=== PATIENT | female | born 2000 | race Caucasian/White ===

== ENCOUNTER 2025-04-01 14:58 | Emergency (ER) | payer OTHER, SELFPAY ==
--- NOTE | ~2025-04-01 | XR_ITS ---
EXAMINATION: XR chest 2V DATE: 04/01/2025 15:32 INDICATION: 2 days of shortness of breath, chest pain, cough and fevers TECHNIQUE: PA and lateral views of the chest were obtained. COMPARISON: None FINDINGS: The lungs are clear with no focal airspace opacities, pulmonary edema, pleural effusion or pneumothorax. Heart size is normal. Venous sternotomy with small median sternotomy wires suggesting surgery during childhood. Aortic valve repair. Correlate with surgical history. IMPRESSION: 1. No acute cardiopulmonary disease. Reviewed, dictated and finalized at location A. NESS SOLUTION ANALYST
--- NOTE | 2025-04-01 15:00 | ED_ITS ---
HPI - General Adult General Chief complaint: Upper Respiratory Infection Stated complaint: FEVER/BODY ACHES/CHILLS/SORE THROAT/CONGESTION Source: patient, RN notes reviewed and old records reviewed Mode of arrival: ambulatory Limitations: no limitations History of Present Illness HPI narrative: 24-year-old female presents to the [facility] with complaints of fever, 100, body aches, chills, sore throat, congestion and a cough. Symptoms started 2 days ago on Monday. Patient Concern for pneumonia. Patient did take ibuprofen at 2:00 p.m.. Sudafed took 1 dose last night. No other treatment prior to arrival Related Data Home Medications ?Medication ?Instructions ?Recorded ?Confirmed ?Last Taken ?Type aspirin 81 mg chewable tablet 81 mg PO DAILY 04/01/25 04/01/25 Unknown History cetirizine .ROUTE 04/01/25 Unknown His tory lisdexamfetamine 20 mg capsule mg 04/01/25 Unknown Hi story Allergies Allergy/AdvReac Type Severity Reaction Status Date / Time No Known Allergies Allergy Verified 04/01/25 15:10 Review of Systems Review of Systems: All systems reviewed & are unremarkable except as noted in HPI and below Constitutional: Constitutional: Reports as per HPI, Reports body ache(s), Reports chills and Reports fever(s) ENT: Reports as per HPI and Reports sore throat Cardiovascular: Cardiovascular: Reports no additional cardiovascular complaints, Denies chest pain and Denies dyspnea Respiratory: Respiratory: Reports as per HPI, Denies chest congestion, Reports cough and Denies dyspnea Musculoskeletal: Musculoskeletal: Reports no additional musculoskeletal compl aints Integumentary/Breasts: Skin/Breast: Reports system reviewed and no additional complaints, except as docu PMFSH Surgical History Surgical History Heart valve replaced Comments At the time of my signature, I reviewed and agree with the nursing past medical, surgical, social, and family history. There is no relevant family history pertinent to the patient complaint. Exam Const: General: cooperative, healthy appearing, comfortable, no acute distress, well developed, alert and well nourished Nutritional Appearance: well nourished Orientation/consciousness: patient oriented x3 Limitations: no limitations HENMT: Head: normal to inspection Ears: hearing grossly normal bilaterally, external ears normal, TM's normal bilaterally, EAC's normal, mastoids normal and no periauricular adenopathy Face and sinus: normal facial exam and face symmetric Mouth: Yes Normal oral and palatal mucosa present, Yes lip normal, Yes tongue normal and Yes moist mucous membranes Throat: posterior oropharynx normal, uvula midline and no uvular edema Eyes: General: appearance normal, both eyes and all related structures Alignment and Position: alignment normal Neck: Neck: normal visual inspection, full ROM, no lymphadenopathy and no meningeal signs Chest: Chest palpation & inspection: normal inspection of the chest Resp: Effort & Inspection: normal respiratory effort and able to speak in complete sentences Auscultation: clear to auscultation bilaterally, no crackles, no rales, no rhonchi and no wheezes Cardio: Rate: regular rate Skin: General skin exam: normal color and no rashes or lesions noted Neuro: General: patient oriented x3, gait normal, moves all extremities and no meningeal signs Cognition (Neuro): normal cognition Speech: normal speech Gait exam (Neuro): Normal gait present Extrem: General: normal to inspection, full ROM, capillary refill normal and normal gait Psych: Appearance: grossly normal and well kempt Mental Status: mental status grossly normal Speech and movement: Normal speech and movement present and Clear speech present Affect: normal affect Attitude: cooperative Course Course Level of Care: Express Care Visit Vital Signs Vital signs: Vital Signs Temperature 98.1 F 04/01/25 15:19 Pulse Rate 97 04/01/25 15:19 Respiratory Rate 16 04/01/25 15:19 Blood Pressure 121/89 04/01/25 15:19 Pulse Oximetry 100 04/01/25 15:19 Temperature 98.1 F 04/01/25 15:19 Pulse Rate 97 04/01/25 15:19 Respiratory Rate 16 04/01/25 15:19 Blood Pressure 121/89 04/01/25 15:19 Pulse Oximetry 100 04/01/25 15:19 Reviewed Medical Decision Making MDM Narrative Medical decision making narrative: Patient sitting comfortably in exam room. Nontoxic, vitals stable. Patient in no acute distress patient presents with 2 day history of URI symptoms, flu, COVID, strep were all negative, will send for strep culture. Chest x-ray negative. Exam with no acute findings, consistent more for a viral URI. Patient is appropriate for out patient treatment with close follow-up Discharge instructions reviewed with patient, as well as provided in writing per nursing staff. The instructions also include specific and strict return/GO TO THE ER as well as f/u information. All questions have been answered, and the patient deny any further questions with discharge and discharge plan. Some parts of this dictation were generated by voice recognition software and may contain typographical and/or grammatical inaccuracies. Differential Diagnosis Differential Diagnosis: strep, flu, COVID, bronchitis, pneumonia, URI Medical Records Medical records reviewed: Yes I reviewed the external patient's medical records. Vital Signs Vital Signs: Vital Signs Temperature 98.1 F 04/01/25 15:19 Pulse Rate 97 04/01/25 15:19 Respiratory Rate 16 04/01/25 15:19 Blood Pressure 121/89 04/01/25 15:19 Pulse Oximetry 100 04/01/25 15:19 Temperature 98.1 F 04/01/25 15:19 Pulse Rate 97 04/01/25 15:19 Respiratory Rate 16 04/01/25 15:19 Blood Pressure 121/89 04/01/25 15:19 Pulse Oximetry 100 04/01/25 15:19 Reviewed Lab Data Lab results reviewed: Yes I reviewed the patient's lab results. Labs: Lab Results 04/01/25 Range/Units 15:32 POC Influenza A Ag Negative (Negative) POC Influenza B Ag Negative (Negative) POC SARS CoV-2 Ag Negative (Negative) POC Grp A Strep Screen Negative (Negative) Reviewed Imaging Data Radiologist's impression: EXAMINATION: XR chest 2V DATE: 04/01/2025 15:32 INDICATION: 2 days of shortness of breath, chest pain, cough and fevers TECHNIQUE: PA and lateral views of the chest were obtained. COMPARISON: None FINDINGS: The lungs are clear with no focal airspace opacities, pulmonary edema, pleural effusion or pneumothorax. Heart size is normal. Venous sternotomy with small median sternotomy wires suggesting surgery during childhood. Aortic valve repair . Correlate with surgical history. IMPRESSION: 1. No acute cardiopulmonary disease. Critical Care Time Critical Care Time Critical Care Time: No Discharge Plan Discharge Clinical Impression: Viral infection, Upper respiratory infection Patient Disposition: Home Condition: Stable Instructions: Upper Respiratory Infection (DC), Viral Syndrome (ED) Additional Instructions: Your rapid strep swab was negative today at [facility]. A throat culture will be sent to the laboratory for further testing. If the test is positive, you will receive a phone call within 48 hours and an appropriate antibiotic will be initiated at that time. Your rapid COVID test were negative Your rapid flu test was negative Your chest x-ray did not show signs of pneumonia. Your symptoms are likely due to a viral illness, which is not treated with antibiotics. Typically viral infections last 7-10 days, can linger for couple of weeks. It is very important to treat your symptoms. Drink plenty of water, Gatorade, Pedialyte, ice pops or Jell-O. -Alternate Tylenol and Motrin per package directions for fever or pain. You can alternate every 4 hours -Antihistamine medication such as Zyrtec/Claritin/Sarah Beth during the day can he lp improve symptoms. -doing daily nasal irrigations can help relieve pressure your sinuses. Things like a Neti pot -Use Flonase twice a day for 5 days then daily to help reduce the inflammation and dry up your sinuses. -You can also use Mucinex. Be sure to drink plenty of water with this medication at least 8 ounces with every dose and it is important to drink 8 to 10 glasses of water per day. Water is a natural decongestant -Eat and drink things that are easy to swallow, like tea or soup, or popsicles. -Oral rinses such as: Salt water gargles and/or may use topical anesthetic (eg. Chloraseptic spray) or lozenges to relieve dryness or throat pain). -Frequent hand washing or hand mail carriers supervisor is one of the best ways to prevent spread of infection. -Using a vaporizer or humidifier at night will also help thin secretions and help with coughing up phlegm. -Follow up with primary care provider in 7-10 days if condition is not improving - For new or worsening symptoms go directly to the nearest ER Patient Language: Frisian Prescriptions: No Action lisdexamfetamine 20 mg capsule aspirin 81 mg tablet,chewable 81 mg PO DAILY cetirizine [Zyrtec] .ROUTE Follow-up/Referrals: UNKNOWN,DOCTOR [Non-Staff] Stand Alone Forms: Work/School Release IP Time of Disposition: 15:41
[2025-04-01 15:19] VITALS: BP 121/89; PULSE 97; RESP 16; TEMP 36.7; O2SAT 100
[2025-04-01 15:34] LABS: EDCOVIDSCREEN Negative (Negative); EDINFLUASCREEN Negative (Negative); EDINFLUBSCREEN Negative (Negative); EDSTREPNEGPOS1 Negative (Negative)
== END 2025-04-01 15:45 | disposition home or self-care (01) ==
PROVIDERS: Emergency Provider Nurse Practitioner
DX: B34.9 Viral infection, unspecified (principal); J06.9 Acute upper respiratory infection, unspecified; Z20.822 Contact with and (suspected) exposure to COVID-19; Z95.2 Presence of prosthetic heart valve; Z79.82 Long term (current) use of aspirin
CPT/HCPCS: 71046; 87081; 87426; 87804; 87880; 99203; G0463